=== PATIENT | male | born 1980 | race Caucasian/White ===

== ENCOUNTER 2016-07-22 22:02 | Emergency (ER) | payer OTHER ==
[~2016-07-22] VITALS: Ht 172.7 cm; Wt 86.2 kg
[~2016-07-22 22:02] MED LIST: FLEXERIL PO; SKEL800T5 PO
[2016-07-22] MEDS ORDERED: ALEV220C2 PO (22:13)
[2016-07-23] MEDS ORDERED: KETOROLAC 60 MG/2 ML VIAL (J1885) IM ONE
[2016-07-23] MEDS ORDERED: KETOROLAC 30 MG/ML VIAL (J1885) As Ordered ONE (00:26)
[2016-07-23] MEDS ORDERED: CYCL10TA PO (00:52)
[2016-07-23] MEDS ORDERED: IBUP600T26 PO (00:52)
[2016-07-23 00:58] VITALS: BP 132/69
== END 2016-07-23 01:01 | disposition home or self-care (01) ==
LOC: M ED 23:08
DX: M54.5 Low back pain (principal); G89.29 Other chronic pain; F17.210 Nicotine dependence, cigarettes, uncomplicated; Z88.8 Allergy status to other drugs, medicaments and biological substances

== ENCOUNTER → 2017-01-18 | Outpatient (REF) | payer OTHER ==
[~2017-01-18] MED LIST changes: +ALEV220C2 PO; +CYCL10TA PO; +IBUP-1022 PO
== END ==
LOC: M SFHCLERA 17:11
PROVIDERS: ATTEND Nurse Practitioner Family
DX: J02.9 Acute pharyngitis, unspecified (principal)

== ENCOUNTER → 2018-04-20 | Outpatient (REF) | payer OTHER | LOC: M SFHCLERA 09:30 | PROVIDERS: ATTEND Physician Assistant | DX: R50.9 Fever, unspecified (principal) ==

== ENCOUNTER → 2018-06-23 | Outpatient (CLI) | payer OTHER ==
--- NOTE | 2018-06-23 18:39 | REP ---
MAXILLOFACIAL CT WITHOUT CONTRAST: HISTORY: Chronic pansinusitis. Minimal mucosal thickening is present in the ethmoid, maxillary and frontal sinuses. Mucosal thickening is present in the right sphenoid sinus. There is almost complete opacification of the right sphenoid sinus. The remaining sinuses are clear. Mucosal thickening involves the osteomeatal units. The middle and inferior nasal turbinates are partially paradoxical. There is nicole bullosa of the right middle turbinate. There is mild deviation of the nasal septum to the right superiorly and to the left inferiorly. A spur is present arising from the left side of the nasal septum. The spur abuts the left middle and inferior nasal turbinates. The cribriform plate, medial rogers of the orbits and optic canals are intact. The carotid canals form a segment of the posterolateral rogers of the sphenoid sinus. Calcifications are present in the tonsils. This is secondary to previous inflammatory disease. IMPRESSION:Sinus mucosal thickening as described above. Electronically Signed by Pako Murcia MD 06/23/2018 06:43 P
== END ==
LOC: M RAD 16:44
PROVIDERS: ATTEND Otolaryngology
DX: J32.4 Chronic pansinusitis (principal)

== ENCOUNTER → 2019-08-11 | Outpatient (REF) | payer OTHER ==
[~2019-08-11] MED LIST changes: +CYCL-707 PO; -CYCL10TA PO
== END ==
LOC: M LAB REF 17:03
PROVIDERS: ATTEND Physician Assistant
DX: R21 Rash and other nonspecific skin eruption (principal)

== ENCOUNTER 2020-02-21 11:04 | Emergency (ER) | payer OTHER ==
[~2020-02-21] VITALS: Ht 172.7 cm; Wt 72.7 kg
[2020-02-21] MEDS ORDERED: LIDO1.1P TOP (11:13)
[2020-02-21] MEDS ORDERED: HYDR-3363 PO (11:13)
[2020-02-21] MEDS ORDERED: KETOROLAC 30 MG/ML 1ML VIAL IV ONE (12:15)
[2020-02-21 12:25] LABS: BASO % 0.2 % (0.0-1.0); EOS # 0.2 10^3/uL (0.0-0.5); EOS % 1.3 % (0.0-3.0); HEMATOCRIT 48.7 % (42.0-52.0); HEMOGLOBIN 15.9 g/dl (13.5-17.5); LYMPH # 3.6 10^3/uL (1.5-5.0); LYMPH % 31.9 % (24.0-44.0); MEAN CORPUSCULAR HEMOGLOBIN 30.2 pg (27.0-33.0); MEAN CORPUSCULAR HGB CONC 32.6 g/dl (32.0-36.5); MEAN CORPUSCULAR VOLUME 92.6 fl (80.0-96.0); MONO # 1.2 10^3/uL (0.0-0.8); MONO % 10.4 % (0.0-5.0); NEUTROPHILS # 6.2 10^3/uL (1.5-8.5); NEUTROPHILS % 55.8 % (36.0-66.0); PLATELET COUNT, AUTOMATED 280 10^3/uL (150-450); RED BLOOD COUNT 5.26 10^6/uL (4.30-6.10); WHITE BLOOD COUNT 11.1 10^3/uL (4.0-10.0)
[2020-02-21 12:47] LABS: ERYTHROCYTE SEDIMENTATION RATE 2 mm/hr (0-15)
--- NOTE | 2020-02-21 13:04 | REP ---
INDICATION: RUQ pain, worse after eating COMPARISON: None. TECHNIQUE: Real time bryan scale ultrasound examination using curved array transducer. FINDINGS: Liver is normal in contour, size, and echogenicity without focal hepatic lesions identified. Pancreas is incompletely evaluated due to interposed bowel gas. The gallbladder is contracted but without obvious gallstones or pericholecystic fluid. No biliary ductal dilatation is appreciated and the common bile duct measures 4.2 mm diameter. Right kidney is normal in reniform shape without hydronephrosis and measures 11.0 x 5.2 x 3.9 cm. No ascites in the visualized right upper quadrant. IMPRESSION: Essentially normal limited right upper quadrant ultrasound <Electronically signed by Tang Mccray > 02/21/20 [id number]
[2020-02-21 13:10] LABS: ALBUMIN 3.8 GM/DL (3.2-5.2); ALT/SGPT 26 U/L (12-78); BILIRUBIN,DIRECT < 0.1 MG/DL (0.0-0.2); BILIRUBIN,TOTAL 0.5 MG/DL (0.2-1.0); CK-MB VALUE MASS < 1.0 NG/ML (<3.6); CPK CREATINE PHOSPHOKINASE 57 U/L (39-308); LIPASE 219 U/L (73-393); MB/CK RELATIVE INDEX 1.75 (< OR =4); TOTAL PROTEIN 7.4 GM/DL (6.4-8.2); TROPONIN I < 0.02 NG/ML (< 0.10)
[2020-02-21] MEDS ORDERED: ISOVUE-370 76% 100ML VIAL As Ordered ONE (13:14)
--- NOTE | 2020-02-21 13:34 | REP ---
INDICATION: chronic pain, worsening ttp. COMPARISON: None. TECHNIQUE: Axial noncontrast images of the thoracic spine with coronal and sagittal reformations. FINDINGS: Thoracic vertebral bodies are intact and without acute fracture/compression injury or subluxation. Alignment and kyphosis maintained. Disc spaces are normal. Spinal canal is patent and normal. Posterior elements and spinous processes are intact. Paravertebral soft tissues are normal. IMPRESSION: Normal thoracic spine CT. No evidence for acute trauma/injury. <Electronically signed by Tang Mccray > 02/21/20 [id number]
--- NOTE | 2020-02-21 13:37 | REP ---
INDICATION: chronic pain, worsening ttp. COMPARISON: None. TECHNIQUE: Axial noncontrast images of the lumbosacral spine from mid T12 through mid sacrum with coronal and sagittal reformations. This CT examination was performed using the following dose reduction techniques: Automated exposure control, adjustment of mA and/or kv according to the patient's size, and use of iterative reconstruction technique. FINDINGS: Minimal degenerative changes include small posterior disc bulges at L5-S1 and L4-5. Alignment and lordosis maintained. Vertebral bodies are intact. Posterior elements and spinous processes are intact. There is no evidence for acute fracture/compression injury or subluxation. The spinal canal is patent. The paravertebral soft tissues are normal. IMPRESSION: No evidence for acute fracture/compression injury or subluxation. Mild posterior disc bulges at L5-S1 and L4-5. <Electronically signed by Tang Mccray > 02/21/20 [id number]
--- NOTE | 2020-02-21 13:40 | REP ---
INDICATION: upper abdominal pain. COMPARISON: None TECHNIQUE: Axial contrast-enhanced images from the lung bases to the pubic symphysis using 100 cc Isovue 370 intravenous contrast material. Coronal and sagittal reformations obtained. This CT examination was performed using the following dose reduction techniques: Automated exposure control, adjustment of mA and/or kv according to the patient's size, and the use of iterative reconstruction technique. FINDINGS: Liver, spleen, pancreas, gallbladder, bilateral adrenal glands and kidneys are essentially normal. Incidental 1.4 cm upper pole left renal hypodensity likely representing complex cyst. The enteric system demonstrates small hiatal hernia at the gastroesophageal junction. Small and large bowel is grossly unremarkable. Scattered colonic and sigmoid diverticula noted without acute diverticulitis. Pelvis demonstrates normal bladder and age-appropriate prostate/seminal vesicles. No ascites. No free air. No intraperitoneal or retroperitoneal adenopathy. Abdominal aorta and vasculature appear normal. Musculoskeletal structures are intact and without acute osseous abnormality. IMPRESSION: No acute abdominopelvic pathology appreciated. <Electronically signed by Tang Mccray > 02/21/20 [id number]
[2020-02-21] MEDS ORDERED: MORPHINE 2 MG/ML 1ML VIAL (J2270) IV ONE (14:00)
[2020-02-21] MEDS ORDERED: PANTOPRAZOLE 40MG VIAL (C9113 PER 1) IV ONE (14:00)
[2020-02-21] MEDS ORDERED: ONDANSETRON 4MG/2ML VIAL IV ONE (14:00)
[2020-02-21] MEDS ORDERED: OMEP40CA97 PO (14:50)
[2020-02-21 15:09] VITALS: BP 106/58
== END 2020-02-21 15:18 | disposition home or self-care (01) ==
LOC: M ED 11:04
DX: K44.9 Diaphragmatic hernia without obstruction or gangrene (principal); M51.26 Other intervertebral disc displacement, lumbar region; M51.27 Other intervertebral disc displacement, lumbosacral region; F17.200 Nicotine dependence, unspecified, uncomplicated; G89.29 Other chronic pain; M54.9 Dorsalgia, unspecified; Z79.899 Other long term (current) drug therapy; Z88.8 Allergy status to other drugs, medicaments and biological substances
CPT/HCPCS: 36415; 72128; 72131; 74177; 76705; 80047; 80076; 81001; 82550; 82553; 83605; 83690; 85025; 85652; 86140; 87040; 96374; 96375; 99284; C9113; J1885; J2405; Q9967

== ENCOUNTER 2020-10-16 02:25 | Inpatient (IN) | payer OTHER ==
[2020-10-16] VITALS (28 sets, daily range): BP systolic 105–151; BP diastolic 66–82
[~2020-10-16] VITALS: Ht 180.3 cm; Wt 78.0 kg
[~2020-10-16 02:25] MED LIST changes: +HYDR-3363 PO; +LIDO1.1P TOP; +OMEP40CA4 PO
[2020-10-16] MEDS ORDERED: NALOXONE 2MG/2ML SYRINGE (J2310 PER 1MG) As Ordered ONE ×2 (02:29→02:32)
[2020-10-16] MEDS ORDERED: PROPOFOL 1,000 MG/100 ML VIAL As Ordered ONE (02:44)
[2020-10-16] MEDS ORDERED: SUCCINYLCHOLINE INJ 200 MG/10 ML VIAL (J0330) IV STA (02:46)
[2020-10-16] MEDS ORDERED: ETOMIDATE INJ 20MG/10ML VIAL IV STA (02:46)
[2020-10-16] MEDS ORDERED: NALOXONE 2MG/2ML SYRINGE (J2310 PER 1MG) IV STA ×3 (02:48)
[2020-10-16] MEDS ORDERED: propofoL 1,000 MG in IV 1 EA IV SCH (02:50)
[2020-10-16 02:53] LABS: BASO # 0.1 10^3/uL (0.0-0.2); BASO % 0.2 % (0.0-1.0); EOS % 0.1 % (0.0-3.0); HEMATOCRIT 49.2 % (42.0-52.0); HEMOGLOBIN 16.6 g/dl (13.5-17.5); LYMPH # 2.9 10^3/uL (1.5-5.0); LYMPH % 11.3 % (24.0-44.0); MEAN CORPUSCULAR HEMOGLOBIN 31.9 pg (27.0-33.0); MEAN CORPUSCULAR HGB CONC 33.7 g/dl (32.0-36.5); MEAN CORPUSCULAR VOLUME 94.4 fl (80.0-96.0); MONO # 1.5 10^3/uL (0.0-0.8); MONO % 5.8 % (2.0-8.0); NEUTROPHILS # 21.2 10^3/uL (1.5-8.5); PLATELET COUNT, AUTOMATED 264 10^3/uL (150-450); RED BLOOD COUNT 5.21 10^6/uL (4.30-6.10)
[2020-10-16 02:58] LABS: WHITE BLOOD COUNT 25.8 10^3/uL (4.0-10.0)
[2020-10-16] MEDS ORDERED: ISOVUE-370 76% 100ML VIAL As Ordered ONE (03:09)
[2020-10-16 03:29] LABS: ACETAMINOPHEN LEVEL < 2.0 UG/ML (10.0-30.0); ALBUMIN 4.4 GM/DL (3.2-5.2); ALT/SGPT 28 U/L (12-78); BILIRUBIN,DIRECT < 0.1 MG/DL (0.0-0.2); BILIRUBIN,TOTAL 0.4 MG/DL (0.2-1.0); BLOOD UREA NITROGEN 19 MG/DL (7-18); CALCIUM LEVEL 8.7 MG/DL (8.5-10.1); CARBON DIOXIDE LEVEL 22 MEQ/L (21-32); CHLORIDE LEVEL 114 MEQ/L (98-107); CPK CREATINE PHOSPHOKINASE 159 U/L (39-308); CREATININE FOR GFR 1.01 MG/DL (0.70-1.30); ETHYL ALCOHOL (ETHANOL) < 0.003 % (0.000-0.010); GLOMERULAR FILTRATION RATE > 60.0 (>60); GLUCOSE, FASTING 140 MG/DL (70-100); POTASSIUM SERUM 3.7 MEQ/L (3.5-5.1); SALICYLATE LEVEL 2.1 MG/DL (5.0-30.0); SODIUM LEVEL 144 MEQ/L (136-145); TOTAL PROTEIN 7.7 GM/DL (6.4-8.2)
[2020-10-16 03:32] LABS: AMPHETAMINES LEVEL URINE NEGATIVE (NEGATIVE); BARBITURATES URINE NEGATIVE (NEGATIVE); BENZODIAZEPINES URINE NEGATIVE (NEGATIVE); CANNABINOIDS URINE POSITIVE (NEGATIVE); COCAINE METABOLITE URINE NEGATIVE (NEGATIVE); METHADONE URINE NEGATIVE (NEGATIVE); OPIATES URINE NEGATIVE (NEGATIVE); PHENCYCLIDINE URINE NEGATIVE (NEGATIVE)
[2020-10-16] MEDS ORDERED: NS 1,000 ML IV ONE (03:40)
[2020-10-16 03:46] LABS: RSV AMPLIFICATION NEGATIVE (NEGATIVE)
--- NOTE | 2020-10-16 04:05 | REPVR ---
PROCEDURE INFORMATION: Exam: XR Chest Exam date and time: 10/16/2020 3:19 AM Age: 40 years old Clinical indication: Other: Drug overdose TECHNIQUE: Imaging protocol: XR of the chest. Views: 1 view. COMPARISON: CT ABD/PEL W/IV CONTRAST ONLY 02/21/2020 1:07 PM FINDINGS: Limitations: The apices and the left costophrenic angle were not fully included. Tubes, catheters and devices: There is an endotracheal tube in appropriate position. A nasogastric tube is present with the tip in the stomach. Lungs: The lungs are clear. Pleural spaces: No pleural effusions or pneumothorax identified. Heart/Mediastinum: The heart is normal in size. Bones/joints: No acute fractures. IMPRESSION: 1. Endotracheal tube and nasogastric tube appropriately positioned. 2. No evidence of acute pleural or parenchymal disease. Electronically signed by: Naila Ricardo On 10/16/2020 04:04:42 AM
--- NOTE | 2020-10-16 04:12 | REPVR ---
PROCEDURE INFORMATION: Exam: CTA Chest With Contrast Exam date and time: 10/16/2020 3:22 AM Age: 40 years old Clinical indication: Other: Apnea/unresponsive TECHNIQUE: Imaging protocol: Computed tomographic angiography of the chest with contrast. 3D rendering (Not supervised by radiologist): MIP and/or 3D reconstructed images were created by the technologist. Radiation optimization: All CT scans at this facility use at least one of these dose optimization techniques: automated exposure control; mA and/or kV adjustment per patient size (includes targeted exams where dose is matched to clinical indication); or iterative reconstruction. Contrast material: ISOVUE 370; Contrast volume: 100 ml; Contrast route: INTRAVENOUS (IV); COMPARISON: CR PORTABLE CHEST X-RAY 10/16/2020 2:46 AM FINDINGS: Tubes, catheters and devices: There is an endotracheal tube in appropriate position. A nasogastric tube is present with the tip in the stomach. Pulmonary arteries: The pulmonary arteries are not enlarged. No filling defects are seen to indicate an acute pulmonary embolism. Aorta: No aortic aneurysm. There are no signs of acute aortic injury. Lungs: There is mild paraseptal emphysema in the upper lobes. There is a small amount of bibasilar atelectasis. Pleural spaces: No pleural effusions or pneumothorax identified. Heart: The heart is normal in size. Lymph nodes: No lymphadenopathy is seen. Bones/joints: No suspicious osseous lesions. There is asymmetric depression of the superior endplate of the T8 vertebral body with lucent fracture lines extending to the superior endplate and the left lateral aspect of the vertebral body, as well as associated mild sclerosis. There is no retropulsion or malalignment of the spine. Soft tissues: The soft tissues appear unremarkable. IMPRESSION: 1. No evidence of acute pulmonary embolism. 2. Mild paraseptal emphysema and a small amount of atelectasis in the bilateral lung bases. 3. Compression fracture involving superior endplate of the T8 vertebral body which may be acute or subacute in age. Electronically signed by: Naila Ricardo On 10/16/2020 04:12:40 AM
--- NOTE | 2020-10-16 04:20 | REPVR ---
PROCEDURE INFORMATION: Exam: CT Abdomen And Pelvis With Contrast Exam date and time: 10/16/2020 3:22 AM Age: 40 years old Clinical indication: Other: Apnea/unresponsive TECHNIQUE: Imaging protocol: Computed tomography of the abdomen and pelvis with contrast. Radiation optimization: All CT scans at this facility use at least one of these dose optimization techniques: automated exposure control; mA and/or kV adjustment per patient size (includes targeted exams where dose is matched to clinical indication); or iterative reconstruction. Contrast material: ISOVUE 370; Contrast volume: 100 ml; Contrast route: INTRAVENOUS (IV); COMPARISON: CT ABD/PEL W/IV CONTRAST ONLY 02/21/2020 1:07 PM FINDINGS: Tubes, catheters and devices: A nasogastric tube is present with the tip in the stomach. A Cummins catheter is present. Liver: The liver appears normal. Gallbladder and bile ducts: The gallbladder is normal with no stones or biliary ductal dilation. Pancreas: The pancreas is normal with no ductal dilation. Spleen: The spleen is normal. Adrenal glands: The adrenal glands are normal. Kidneys and ureters: An exophytic homogeneous, mildly hyperdense cyst is again seen at the left kidney upper pole, measuring 14 mm in diameter, without significant change. No follow-up imaging is needed. There are no ureteral stones or hydronephrosis. Stomach and bowel: The small bowel appears unremarkable. There is no dilation or thickening of the colon. Appendix: A normal appendix is identified. Intraperitoneal space: There is no evidence of free intraperitoneal or pelvic fluid. There is no free intraperitoneal air. Vasculature: No aortic aneurysm. Lymph nodes: No lymphadenopathy is seen. Urinary bladder: The bladder is decompressed. There is a small amount of intraluminal air in the bladder consistent with instrumentation. Reproductive: The prostate gland appears normal. Bones/joints: No suspicious osseous lesions. No acute fractures. Soft tissues: The soft tissues appear unremarkable. IMPRESSION: No evidence of an acute abdominal or pelvic abnormality. Electronically signed by: Naila Ricardo On 10/16/2020 04:19:21 AM
--- NOTE | 2020-10-16 04:21 | REPVR ---
PROCEDURE INFORMATION: Exam: CT Head Without Contrast Exam date and time: 10/16/2020 3:22 AM Age: 40 years old Clinical indication: Altered mental status/memory loss TECHNIQUE: Imaging protocol: Computed tomography of the head without contrast. Radiation optimization: All CT scans at this facility use at least one of these dose optimization techniques: automated exposure control; mA and/or kV adjustment per patient size (includes targeted exams where dose is matched to clinical indication); or iterative reconstruction. COMPARISON: None FINDINGS: Images through the base of the brain and posterior fossa, including the brainstem are slightly degraded by beam hardening artifacts from the adjacent calvarium. There is no evidence of acute intracranial hemorrhage, extra axial fluid collection or hematoma. There is no midline shift or herniation. The ventricles are not dilated. No evidence of pneumocephalus. There is mild intracranial atherosclerosis. No CT findings are seen at the current time to suggest changes of acute territorial vascular infarction. Note is made however, that CT changes, may lag clinical findings in acute CVA. If clinically indicated, consideration could be given to MRI with diffusion weighted imaging, due to its greater sensitivity, for early detection of acute ischemic change. No evidence of regional or global edema. Incidental intracranial calcifications are noted. No pericranial scalp hematoma is seen. No acute cranial vault fracture is seen. No fluid is seen within the visualized mastoid air cells. The visualized middle ear cavities are not opacified. There is partial opacification of visualized nasal cavities as well as the entire visualized nasopharynx this may be secondary to secretions or inflammation/infection. Clinical correlation is advised. There is mucosal thickening and some thickened appearing fluid within the right sphenoid sinus. IMPRESSION: No evidence of acute territorial major vessel infarct, mass effect, or hemorrhage. Right sphenoid sinusitis. Clinical correlation for inflammation/infection involving the nasal cavity/nasopharynx. Findings discussed above in detail. Electronically signed by: George Juárez On 10/16/2020 04:21:19 AM
[2020-10-16 04:23] LABS: LIPASE 208 U/L (73-393)
--- NOTE | 2020-10-16 04:27 | REPVR ---
PROCEDURE INFORMATION: Exam: CT Cervical Spine Without Contrast Exam date and time: 10/16/2020 3:22 AM Age: 40 years old Clinical indication: Other: AMS; Additional info: Altered mental status TECHNIQUE: Imaging protocol: Computed tomography images of the cervical spine without contrast. Radiation optimization: All CT scans at this facility use at least one of these dose optimization techniques: automated exposure control; mA and/or kV adjustment per patient size (includes targeted exams where dose is matched to clinical indication); or iterative reconstruction. COMPARISON: None FINDINGS: Cervical vertebral body heights and posterior cervical alignment are within normal limits. Prevertebral soft tissues are not well evaluated secondary to anterior catheterizations. No discrete paravertebral soft tissue hematoma is seen. The facet joints are not subluxed or dislocated. Inter spinous spacing is within normal limits. The atlantodental interval is maintained. No acute fracture of the cervical spine is seen. Degenerative changes of the cervical spine are noted, most pronounced at the C6/C7 level where there is moderate disc space loss, anterior osteophytes and posterior bony ridging. Disc displacements are not reliably assessed by this technique, however multiple posterior disc displacements are suspected, including possibly a central focal protrusion at the C5/6 level which may contact and slightly efface the anterior cord and moderate suspected disc bulge at the C6/7 level, likely contacting the anterior cord. If there are neurologic symptoms, consider further evaluation by MRI as clinically appropriate. Pleural thickening, parenchymal scarring and emphysematous changes noted at the visualized lung apices. Oral catheterizations noted extending below the level of imaging, 1 within the trachea and 1 within the esophagus , consistent with endotracheal and transesophageal catheter respectively. Tiny bubble of gas within the left internal jugular vein, likely iatrogenic. Multiple small cervical lymph nodes are seen bilaterally. These could be followed up clinically for any significance. IMPRESSION: No acute fracture or malalignment of the cervical spine. Other findings discussed above. Electronically signed by: George Juárez On 10/16/2020 04:27:14 AM
[2020-10-16 05:01] LABS: OSMOLALITY SERUM 300 MOSM/KG (275-295)
[2020-10-16 05:52] LABS: DIGOXIN LEVEL 0.1 NG/ML (0.5-2.0); MAGNESIUM LEVEL 2.3 MG/DL (1.8-2.4)
[2020-10-16] MEDS ORDERED: HOME MED LIST COMPLETE! XX SCH (06:00)
[2020-10-16] MEDS ORDERED: IBUP-1720 PO (06:00)
[2020-10-16] MEDS ORDERED: VITMTA PO (06:00)
--- NOTE | 2020-10-16 07:11 | HPEPDOC ---
[facility] Medical History & Physical Date of Admission Oct 16, 2020 Date of Service: Oct 16, 2020 Attending Physician: CONSTANCE RITTER MD History and Physical CHIEF COMPLAINT: Altered mental status HISTORY OF PRESENT ILLNESS: This is a 40-year-old male with past medical history of marijuana smoking, chronic low back pain who was brought in by ambulance for altered mental status. There was 2 part of the story given by patient's and subsequently by his sister. 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 And this afternoon he started complaining of feeling unwell and nauseated. He was making strange noises and eventually became altered. That's when his called the EMS to bring him in. The other part of the story was given by his sister. Basically, patient and his were arguing around 6 PM in the afternoon. His took the kids with her to get him situated in the came back home and did not find patient at home. Patient called his around 7 PM in the afternoon stating that he took "20 to 25 pills" of unclear specificity. He feels unwell and called his to come and pick him up. He was picked up and when he came home he became progressively altered to the point where he was found lying on the floor when EMS arrived. Upon arrival to the emergency department, patient was found to be significantly apneic. He was also profoundly bradycardic/sinus bradycardia with no evidence of prolonged QT. He received total of 6 mg of Narcan without any improvement in his clinical response. Due to persistence apnea, patient was intubated for airway protection in the emergency department. ICU was consulted for further management. Further work-up revealed patient is afebrile and normotensive. However his heart rate is in the 30s despite him being agitated on the ventilator. There is significant leukocytosis of 20,000 white count but no evidence of left shift. His kidney function is fairly preserved with no evidence of transaminitis. CK is within normal limit. Urine toxicology showed only positive for cannabinoid. Serum alcohol level, salicylate level, acetaminophen level, digoxin level were all undetectable. He has no evidence of lactic acidosis. Urinalysis with some ketones, blood and RBC. There was small amount of calcium oxalate crystal in the urine. EKG with sinus bradycardia with no evidence of prolonged QTC. CT scan of the head, chest, abdomen did not show any acute pathology. PAST MEDICAL HISTORY: Chronic low back pain and cannabinoid use PAST SURGICAL HISTORY: None SOCIAL HISTORY: Marital status: and has kids. 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 He use cannabinoid and cigarettes. But he does not have any history of alcoholic consumption. FAMILY HISTORY: Family history is noncontributory to this hospital admission. ALLERGIES: Please see below. REVIEW OF SYSTEMS: Review of system cannot be obtained as patient is currently sedated and intubated. HOME MEDICATIONS: Please see below. PHYSICAL EXAMINATION: VITAL SIGNS: Please see vital signs below. GENERAL APPEARANCE: Sedated and intubated. Appear stated age. Not in any acute distress. HEENT: No evidence of JVD or cervical adenopathy. CARDIOVASCULAR: Normal heart sounds with no extra heart sounds or murmur. Bradycardia LUNGS: Clear to auscultation bilaterally with no evidence of rhonchi, wheezing, crackles. ABDOMEN: Soft, nontender, hypoactive bowel sounds with no evidence of organomegaly. MUSCULOSKELETAL: No evidence of joint effusion or joint swelling. No evidence of muscle stiffness EXTREMITIES: No clubbing of the fingers or lower extremity pedal edema. NEUROLOGICAL: No muscle rigidity. Pupils are reactive to light. No evidence of myosis or mydriasis. PSYCHIATRIC: Unable to be assessed. Skin: No evidence of erythema or skin flushing LABORATORY DATA: See below. MICROBIOLOGY: Please see below. ASSESSMENT: This is a 40-year-old male with past medical history of marijuana smoking, chronic low back pain who was brought in by ambulance for altered mental status. #Acute respiratory failure -Secondary to inability to protect airway. Patient is currently intubated. Gas exchange is optimal with no evidence of pulmonary pathology. Ventilator setting at respiratory rate of 18, tidal volume 450, PEEP 5, FiO2 40%. #Metabolic encephalopathy -Likely secondary to suspected overdose. Will perform sedation holiday tomorrow to assess his mental status. #Overdose of unknown substance; intentional versus accidental -It is unclear what medication he took. Available toxicology work-up so far negative. There is no evidence of osmolar or anion gap. Only significant finding on physical examination is sinus bradycardia with no evidence of prolonged QTc. However, he is hemodynamic stable. Pacer pads are on his chest. There is however small evidence of calcium oxalate crystals in urinalysis/urine microscopy. I will repeat serum osmolarity and BMP as well as acetaminophen level in 6 hours. -He will need to get evaluated by psychiatry once he get extubated. -Poison control was contacted by emergency department and they recommended activated charcoal. -We will continue with maintenance IV fluids to flush-out unknown substance from his body. #Leukocytosis -Likely reactive. There is no evidence of bandemia or left shift. DVT prophylaxis: Lovenox subcutaneous GI prophylaxis: Protonix Diet: N.p.o. Critical care time excluding procedure is 70 minutes. Vital Signs Vital Signs Date Time Temp Pulse Resp B/P (MAP) Pulse Ox O2 Delivery O2 Flow Rate FiO2 10/16/20 04:55 96.6 34 18 105/69 (81) 100 Ventilator 10/16/20 03:38 50 Laboratory Data Labs 24H Laboratory Tests 2 10/16/20 02:37: Immature Granulocyte % (Auto) 0.6, Neutrophils (%) (Auto) 82.0H, Lymphocytes (%) (Auto) 11.3L, Monocytes (%) (Auto) 5.8, Eosinophils (%) (Auto) 0.1, Basophils (%) (Auto) 0.2, Neutrophils # (Auto) 21.2H, Lymphocytes # (Auto) 2.9, Monocytes # (Auto) 1.5H, Eosinophils # (Auto) 0.0, Basophils # (Auto) 0.1, Nucleated Red Blood Cells % (auto) 0.0, Urine Color YELLOW, Urine Appearance HAZY, Urine pH 5.0, Urine Specific Rufus 1.024, Urine Protein 1+H, Urine Glucose (UA) NEGATIVE, Urine Ketones 1+H, Urine Blood 1+H, Urine Nitrite NEGATIVE, Urine Bilirubin NEGATIVE, Urine Urobilinogen 0.2, Urine Leukocyte Esterase NEGATIVE, Urine WBC (Auto) 3, Urine RBC (Auto) 11H, Urine Hyaline Casts (Auto) 0, Urine Bacteria (Auto) NEGATIVE, Urine Squamous Epithelial Cells 1, Urine Calcium Oxalate Cryst (Auto) SMALL, Urine Mucus (Auto) SMALL, Urine Sperm (Auto) , Urine Osmolality 869, Anion Gap 8, Glomerular Filtration Rate > 60.0, Osmolality 300H, Lactic Acid Level 1.9, Calcium Level 8.7, Magnesium Level 2.3, Total Bilirubin 0.4, Direct Bilirubin < 0.1, Aspartate Amino Transf (AST/SGOT) 14, Alanine Aminotransferase (ALT/SGPT) 28, Alkaline Phosphatase 85, Total Creatine Kinase 159, Total Protein 7.7, Albumin 4.4, Albumin/Globulin Ratio 1.3, Lipase 208, Thyroid Stimulating Hormone (TSH) 1.520, Digoxin Level 0.1L, Salicylates Level 2.1L, Urine Opiates Screen NEGATIVE, Urine Methadone Screen NEGATIVE, Acetaminophen Level < 2.0L, Urine Barbiturates Screen NEGATIVE, Urine Phencyclidine Screen NEGATIVE, Urine Amphetamines Screen NEGATIVE, Urine Benzodiazepines Screen NEGATIVE, Urine Cocaine Metabolite Screen NEGATIVE, Urine Cannabinoids Screen POSITIVEH, Ethyl Alcohol Level < 0.003 10/16/20 02:41: Bedside Glucose (Misc Panel) 123H 10/16/20 03:04: POC Glucose (Misc Panel) 148H, POC Sodium (Misc Panel) 147H, POC Potassium (Misc Panel) 3.9, POC Chloride (Misc Panel) 114H, POC Total CO2 (Misc Panel) 19.0L, POC Blood Urea Nitrogen (Misc Panel 19, POC Ionized Calcium (Misc Panel) 4.8, POC Creatinine (Misc Panel) 0.6, POC Hematocrit (Misc Panel) 43.0, Coronavirus (COVID-19)(PCR) NEGATIVE, Influenza Type A (RT-PCR) NEGATIVE, Influenza Type B (RT-PCR) NEGATIVE, Respiratory Syncytial Virus (PCR) NEGATIVE 10/16/20 03:05: POC Total CO2 (Misc Panel) 21.0L, POC pH (Misc Panel) 7.246*L, POC Base Excess (Misc Panel) -8.0L, POC Saturated Percent O2 (Misc) 100H, POC pO2 (Misc Panel) 304.0H, POC pCO2 (Misc Panel) 44.2, POC HCO3 (Misc Panel) 19.2L 10/16/20 04:31: POC pH (Misc Panel) 7.287L, POC Base Excess (Misc Panel) -9.0L, POC Saturated Percent O2 (Misc) 99H, POC pO2 (Misc Panel) 169.0H, POC pCO2 (Misc Panel) 37.2, POC HCO3 (Misc Panel) 17.8L, POC Total CO2 (Misc Panel) 19.0L CBC/BMP Laboratory Tests 10/16/20 02:37 Microbiology Microbiology 10/16/20 Blood Culture, Received Pending 10/16/20 Blood Culture, Received Pending Home Medications Scheduled Multivitamins (Thera M Plus Tablet) 1 Each Tablet, 1 TAB PO DAILY Scheduled PRN Ibuprofen (Ibuprofen) 200 Mg Tablet, 600 MG PO Q6H PRN for BACK PAIN Allergies Coded Allergies: prednisone (Verified Allergy, Unknown, hypotension, 02/21/20) A-FIB/CHADSVASC A-FIB History Current/History of A-Fib/PAF?: No CONSTANCE RITTER MD Oct 16, 2020 07:11
[2020-10-16 07:59] LABS: OSMOLALITY SERUM 305 MOSM/KG (275-295)
[2020-10-16 08:12] LABS: BLOOD UREA NITROGEN 15 MG/DL (7-18); CALCIUM LEVEL 7.7 MG/DL (8.5-10.1); CARBON DIOXIDE LEVEL 17 MEQ/L (21-32); CHLORIDE LEVEL 123 MEQ/L (98-107); GLOMERULAR FILTRATION RATE > 60.0 (>60); GLUCOSE, FASTING 96 MG/DL (70-100); POTASSIUM SERUM 4.8 MEQ/L (3.5-5.1); SODIUM LEVEL 146 MEQ/L (136-145)
[2020-10-16] MEDS: LR 1,000 ML IV SCH ×2 (08:29→17:09)
[2020-10-16] MEDS: PANTOPRAZOLE 40MG VIAL (C9113 PER 1) IV SCH (08:29)
[2020-10-16] MEDS: ENOXAPARIN 40MG/0.4ML SYRINGE (J1650 PER 10MG) SC SCH (08:29)
[2020-10-16] MEDS: CHLORHEXIDINE GLUCONATE 0.12 % 15ML UDC (PERIDEX ORAL RINSE) MT SCH ×2 (08:29→20:51)
[2020-10-16 09:57] LABS: CK-MB VALUE MASS 2.1 NG/ML (<3.6); CPK CREATINE PHOSPHOKINASE 180 U/L (39-308); MB/CK RELATIVE INDEX 1.17 (< OR =4); PHOSPHORUS LEVEL 1.8 MG/DL (2.5-4.9); TROPONIN I < 0.02 NG/ML (< 0.10)
[2020-10-16] MEDS: propofoL 1,000 MG in IV 1 EA IV SCH ×4 (10:35→20:50)
[2020-10-16] MEDS ORDERED: MIDAZOLAM INJ 2MG/2ML VIAL (J2250 PER 1MG) As Ordered ONE (12:20)
[2020-10-16] MEDS ORDERED: MIDAZOLAM INJ 2MG/2ML VIAL (J2250 PER 1MG) IV PRN (12:20)
[2020-10-16] MEDS ORDERED: MIDAZOLAM INJ 2MG/2ML VIAL (J2250 PER 1MG) IV STA (12:20)
[2020-10-16] MEDS ORDERED: SODIUM PHOSPHATE INJ 30 MMOL in D5W 500 ML IV ONE (13:00)
[2020-10-16 14:45] LABS: BLOOD UREA NITROGEN 12 MG/DL (7-18); CALCIUM LEVEL 8.2 MG/DL (8.5-10.1); CARBON DIOXIDE LEVEL 21 MEQ/L (21-32); CHLORIDE LEVEL 116 MEQ/L (98-107); GLOMERULAR FILTRATION RATE > 60.0 (>60); GLUCOSE, FASTING 121 MG/DL (70-100); POTASSIUM SERUM 3.9 MEQ/L (3.5-5.1); SODIUM LEVEL 144 MEQ/L (136-145)
[2020-10-17] VITALS (16 sets, daily range): BP systolic 97–156; BP diastolic 53–86
[2020-10-17] MEDS: propofoL 1,000 MG in IV 1 EA IV SCH ×4 (00:31→08:15)
[2020-10-17] MEDS: MIDAZOLAM INJ 2MG/2ML VIAL (J2250 PER 1MG) IV PRN ×2 (03:22→08:00)
[2020-10-17] MEDS: LR 1,000 ML IV SCH ×2 (04:07→13:18)
[2020-10-17 06:08] LABS: HEMATOCRIT 39.3 % (42.0-52.0); HEMOGLOBIN 13.3 g/dl (13.5-17.5); MEAN CORPUSCULAR HEMOGLOBIN 31.5 pg (27.0-33.0); MEAN CORPUSCULAR HGB CONC 33.8 g/dl (32.0-36.5); MEAN CORPUSCULAR VOLUME 93.1 fl (80.0-96.0); PLATELET COUNT, AUTOMATED 214 10^3/uL (150-450); RED BLOOD COUNT 4.22 10^6/uL (4.30-6.10); WHITE BLOOD COUNT 14.6 10^3/uL (4.0-10.0)
[2020-10-17 06:32] LABS: ALT/SGPT 20 U/L (12-78); BILIRUBIN,TOTAL 0.4 MG/DL (0.2-1.0); BLOOD UREA NITROGEN 9 MG/DL (7-18); CALCIUM LEVEL 8.2 MG/DL (8.5-10.1); CARBON DIOXIDE LEVEL 26 MEQ/L (21-32); CHLORIDE LEVEL 114 MEQ/L (98-107); CREATININE FOR GFR 0.77 MG/DL (0.70-1.30); GLOMERULAR FILTRATION RATE > 60.0 (>60); GLUCOSE, FASTING 101 MG/DL (70-100); POTASSIUM SERUM 3.4 MEQ/L (3.5-5.1); SODIUM LEVEL 144 MEQ/L (136-145); TOTAL PROTEIN 5.7 GM/DL (6.4-8.2)
[2020-10-17] MEDS: ENOXAPARIN 40MG/0.4ML SYRINGE (J1650 PER 10MG) SC SCH (08:00)
[2020-10-17] MEDS: PANTOPRAZOLE 40MG VIAL (C9113 PER 1) IV SCH (08:00)
[2020-10-17] MEDS: CHLORHEXIDINE GLUCONATE 0.12 % 15ML UDC (PERIDEX ORAL RINSE) MT SCH (08:00)
[2020-10-17] MEDS: dexmedeTOMidine 200 MCG in IV 1 EA IV SCH (08:16)
[2020-10-17] MEDS ORDERED: POTASSIUM CHLORIDE 10% LIQ 20 MEQ/15 ML UDC PO ONE (10:00)
--- NOTE | 2020-10-17 12:35 | IPNPDOC ---
Subjective Date Seen The patient was seen on 10/17/20. Subjective Chief Complaint/HPI Patient was awake and alert this morning. He was following commands. Therefore he was extubated to room air. Per patient, he admits to taking 20 to 25 tablets of muscle relaxant (the name of the medication is still unclear). Therefore this was a suicidal attempt. He denies of any other complaints. Constitutional: Denies: Chills, Fever Eyes: Denies: Pain ENT: Denies: Sore Throat Skin: Denies: Rash Pulmonary: Denies: Dyspnea, Cough, Pleuritic Chest Pain Cardiovascular: Denies: Chest Pain, Palpitations, Orthopnea, Paroxysmal Noc. Dyspnea Gastrointestinal: Denies: Nausea, Vomiting, Abdominal Pain, Diarrhea Neurological: Denies: Weakness, Numbness Objective Physical Examination General Exam: Positive: Alert, Cooperative, No Acute Distress Eye Exam: Positive: PERRLA, Sclera icteric ENT Exam: Positive: Atraumatic Neck Exam: Positive: Supple; Negative: JVD Chest Exam: Positive: Clear to auscultation, Normal air movement Heart Exam: Positive: Rate Normal Abdomen Exam: Positive: Normal bowel sounds, Soft; Negative: Tenderness Extremity Exam: Negative: Clubbing, Cyanosis, Edema Neuro Exam: Positive: Normal Speech Psych Exam: Positive: Mood NL, Oriented x 3 Assessment /Plan Assessment This is a 40-year-old male with past medical history of marijuana smoking, chronic low back pain who was brought in by ambulance for altered mental status. Plan/VTE VTE Prophylaxis Ordered?: Yes Plan #Acute respiratory failure -He was initially intubated for airway protection due to persistent apnea From medication overdose. He is alert and oriented today. Therefore he was extubated to room air. #Metabolic encephalopathy -Secondary to muscle relaxant overdose. However, this has been resolved. #Overdose of muscle relaxant; intentional -It appears there is no sympathomimetic/anticholinergic or significant parasympathetic response to any of the medication he took. He is hemodynamic stable and normal muscle rigidity of rhabdomyolysis. Only presenting symptom associated with the medication he took was sinus bradycardia with no ST-T wave changes. -He is currently alert and oriented. Psychiatry has been consulted for involuntary admission for inpatient psych. #Leukocytosis -Resolved #Sinus bradycardia -Likely related to the muscle relaxant he took. However this has been resolved. We will continue with maintenance IV fluid administration for medication clearance. DVT prophylaxis: Lovenox subcutaneous GI prophylaxis: Not indicated Diet: Clear liquid diet Critical care time excluding procedure is 40 minutes. Disposition Continue ICU care. VS, I&O, 24H, Fishbone Vital Signs/I&O Vital Signs Date Time Temp Pulse Resp B/P (MAP) Pulse Ox O2 Delivery O2 Flow Rate FiO2 10/17/20 12:10 94 22 97 Nasal Cannula 2.0 10/17/20 12:00 98.4 129/76 (93) 35 I&O- Last 24 Hours up to 6 AM 10/17/20 06:00 Intake Total 2743.57 ml Output Total 1295 ml Balance 1448.57 ml Laboratory Data 24H LABS Laboratory Tests 2 10/16/20 13:57: Anion Gap 7L, Glomerular Filtration Rate > 60.0, Calcium Level 8.2L 10/17/20 05:16: Anion Gap 4L, Glomerular Filtration Rate > 60.0, Calcium Level 8.2L, Nucleated Red Blood Cells % (auto) 0.0, Total Bilirubin 0.4, Aspartate Amino Transf (AST/SGOT) 9, Alanine Aminotransferase (ALT/SGPT) 20, Alkaline Phosphatase 67, Total Protein 5.7#L, Albumin 3.0#L, Albumin/Globulin Ratio 1.1 10/17/20 09:18: Methicillin-Resist S.aureus DNA PCR NOT DETECTED CBC/BMP Laboratory Tests 10/16/20 13:57 10/17/20 05:16 Microbiology Microbiology 10/16/20 Blood Culture - Preliminary, Resulted No growth after 24 hours . All specim... 10/16/20 Blood Culture - Preliminary, Resulted No growth after 24 hours . All specim... CONSTANCE RITTER MD Oct 17, 2020 12:35
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
[2020-10-17] MEDS ORDERED: HALOPERIDOL 5MG/ML VIAL (J1630 PER 1) As Ordered ONE (15:19)
[2020-10-17] MEDS ORDERED: HALOPERIDOL 5MG/ML VIAL (J1630 PER 1) IV ONE (15:20)
[2020-10-17] MEDS ORDERED: HALOPERIDOL 5MG/ML VIAL (J1630 PER 1) IM STA (15:22)
[2020-10-17] MEDS ORDERED: diphenhydrAMINE 50MG/ML VIAL (J1200) IV ONE (15:35)
[2020-10-17] MEDS ORDERED: BENZTROPINE 1 MG TAB PO PRN (15:55)
--- NOTE | 2020-10-17 16:42 | ECGEPIP ---
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
--- NOTE | 2020-10-17 16:43 | ECGEPIP ---
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
[2020-10-17] MEDS ORDERED: LORazepam 2 MG/ML VIAL As Ordered ONE (16:46)
[2020-10-17] MEDS ORDERED: diphenhydrAMINE 50MG/ML VIAL (J1200) IV STA (16:49)
[2020-10-17] MEDS ORDERED: LORazepam 2 MG/ML VIAL IV STA (16:49)
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
[2020-10-17] MEDS ORDERED: OLANZapine INTRAMUSCULAR 10MG VIAL IM ONE (18:00)
[2020-10-17] MEDS ORDERED: LORazepam 2 MG/ML VIAL IV PRN (19:45)
[2020-10-17] MEDS ORDERED: diphenhydrAMINE 50MG/ML VIAL (J1200) IV PRN (19:45)
[2020-10-17] MEDS ORDERED: ACETAMINOPHEN *IV* 650 MG in IV 1 EA IV ONE (19:50)
[2020-10-17 20:30] LABS: BASO % 0.1 % (0.0-1.0); HEMATOCRIT 41.2 % (42.0-52.0); HEMOGLOBIN 14.3 g/dl (13.5-17.5); LYMPH # 1.6 10^3/uL (1.5-5.0); LYMPH % 9.3 % (24.0-44.0); MEAN CORPUSCULAR HEMOGLOBIN 31.7 pg (27.0-33.0); MEAN CORPUSCULAR HGB CONC 34.7 g/dl (32.0-36.5); MEAN CORPUSCULAR VOLUME 91.4 fl (80.0-96.0); MONO % 9.3 % (2.0-8.0); NEUTROPHILS # 13.4 10^3/uL (1.5-8.5); NEUTROPHILS % 80.4 % (36.0-66.0); PLATELET COUNT, AUTOMATED 224 10^3/uL (150-450); RED BLOOD COUNT 4.51 10^6/uL (4.30-6.10)
--- NOTE | 2020-10-17 20:38 | REPVR ---
PROCEDURE INFORMATION: Exam: XR Chest Exam date and time: 10/17/2020 8:08 PM Age: 40 years old Clinical indication: Fever TECHNIQUE: Imaging protocol: XR of the chest. Views: 1 view. COMPARISON: CR PORTABLE CHEST X-RAY 10/16/2020 2:46 AM FINDINGS: Lungs: Unremarkable. No consolidation. Pleural spaces: Unremarkable. No pleural effusion. No pneumothorax. Heart/Mediastinum: Unremarkable. No cardiomegaly. Bones/joints: Unremarkable. IMPRESSION: Negative chest with interval removal of ET tube and NG tube since 10/16/2020. Electronically signed by: Dave Echevarria On 10/17/2020 20:38:41 PM
[2020-10-17 20:55] LABS: ALBUMIN 3.4 GM/DL (3.2-5.2); ALT/SGPT 23 U/L (12-78); BILIRUBIN,TOTAL 0.7 MG/DL (0.2-1.0); BLOOD UREA NITROGEN 9 MG/DL (7-18); CALCIUM LEVEL 8.3 MG/DL (8.5-10.1); CARBON DIOXIDE LEVEL 25 MEQ/L (21-32); CHLORIDE LEVEL 115 MEQ/L (98-107); CREATININE FOR GFR 0.96 MG/DL (0.70-1.30); GLOMERULAR FILTRATION RATE > 60.0 (>60); GLUCOSE, FASTING 110 MG/DL (70-100); POTASSIUM SERUM 3.3 MEQ/L (3.5-5.1); SODIUM LEVEL 146 MEQ/L (136-145); TOTAL PROTEIN 6.5 GM/DL (6.4-8.2)
[2020-10-17] MEDS ORDERED: HALOPERIDOL 5MG/ML VIAL (J1630 PER 1) IM PRN ×3 (21:00)
[2020-10-17 21:16] LABS: MONO # 1.6 10^3/uL (0.0-0.8); WHITE BLOOD COUNT 16.7 10^3/uL (4.0-10.0)
[2020-10-18] VITALS: BP 140/70
[2020-10-18 04:00] VITALS: BP 153/82
[2020-10-18 05:41] LABS: HEMATOCRIT 40.8 % (42.0-52.0); HEMOGLOBIN 13.8 g/dl (13.5-17.5); MEAN CORPUSCULAR HEMOGLOBIN 30.7 pg (27.0-33.0); MEAN CORPUSCULAR HGB CONC 33.8 g/dl (32.0-36.5); MEAN CORPUSCULAR VOLUME 90.9 fl (80.0-96.0); PLATELET COUNT, AUTOMATED 203 10^3/uL (150-450); RED BLOOD COUNT 4.49 10^6/uL (4.30-6.10); WHITE BLOOD COUNT 11.5 10^3/uL (4.0-10.0)
[2020-10-18 06:30] LABS: ALBUMIN 3.2 GM/DL (3.2-5.2); ALT/SGPT 21 U/L (12-78); BLOOD UREA NITROGEN 10 MG/DL (7-18); CARBON DIOXIDE LEVEL 24 MEQ/L (21-32); CHLORIDE LEVEL 115 MEQ/L (98-107); CREATININE FOR GFR 0.86 MG/DL (0.70-1.30); GLOMERULAR FILTRATION RATE > 60.0 (>60); GLUCOSE, FASTING 101 MG/DL (70-100); MAGNESIUM LEVEL 2.1 MG/DL (1.8-2.4); PHOSPHORUS LEVEL 1.6 MG/DL (2.5-4.9); POTASSIUM SERUM 3.1 MEQ/L (3.5-5.1); SODIUM LEVEL 146 MEQ/L (136-145); TOTAL PROTEIN 6.1 GM/DL (6.4-8.2)
[2020-10-18 08:00] VITALS: BP 146/77
[2020-10-18] MEDS ORDERED: POTASSIUM CHLORIDE 10 MEQ SR TABLET PO ONE (10:30)
[2020-10-18 12:09] LABS: AMORPHOUS SEDIMENT SMALL (NEGATIVE); APPEARANCE, URINE CLOUDY (CLEAR); BACTERIA, URINE AUTO NEGATIVE (NEGATIVE); BILIRUBIN, URINE AUTO NEGATIVE (NEGATIVE); BLOOD, URINE BLOOD NEGATIVE (NEGATIVE); COLOR, URINE YELLOW (YELLOW); GLUCOSE, URINE (UA) AUTO NEGATIVE (NEGATIVE); KETONE, URINE AUTO 1+ mg/dL (NEGATIVE); LEUKOCYTE ESTERASE, URINE AUTO NEGATIVE (NEGATIVE); MUCUS, URINE SMALL (NEGATIVE); NITRITE, URINE AUTO NEGATIVE (NEGATIVE); PROTEIN, URINE AUTO NEGATIVE (NEGATIVE); RBC, URINE AUTO 7 /HPF (0-3); SPECIFIC GRAVITY URINE AUTO 1.016 (1.002-1.035); SQUAMOUS EPITHELIAL CELL UR AU 0 /HPF (0-6); WBC, URINE AUTO 2 /HPF (0-3)
[2020-10-18] MEDS ORDERED: POTASSIUM PHOSPHATE INJ 30 MMOL in D5W 500 ML IV ONE (13:00)
[2020-10-18] MEDS: ENOXAPARIN 40MG/0.4ML SYRINGE (J1650 PER 10MG) SC SCH (13:23)
[2020-10-18 15:14] VITALS: BP 153/90
[2020-10-18] MEDS: D5W/0.45% SODIUM CHLORIDE 1,000 ML IV SCH (16:09)
[2020-10-18 20:00] VITALS: BP 150/90
[2020-10-19] MEDS: D5W/0.45% SODIUM CHLORIDE 1,000 ML IV SCH ×2 (05:00→18:18)
[2020-10-19 05:02] VITALS: BP 130/81
[2020-10-19 06:39] LABS: BASO % 0.2 % (0.0-1.0); EOS # 0.3 10^3/uL (0.0-0.5); EOS % 2.7 % (0.0-3.0); HEMATOCRIT 40.7 % (42.0-52.0); HEMOGLOBIN 13.9 g/dl (13.5-17.5); LYMPH # 3.3 10^3/uL (1.5-5.0); LYMPH % 31.5 % (24.0-44.0); MEAN CORPUSCULAR HEMOGLOBIN 31.4 pg (27.0-33.0); MEAN CORPUSCULAR HGB CONC 34.2 g/dl (32.0-36.5); MEAN CORPUSCULAR VOLUME 91.9 fl (80.0-96.0); MONO # 1.2 10^3/uL (0.0-0.8); MONO % 11.7 % (2.0-8.0); NEUTROPHILS # 5.5 10^3/uL (1.5-8.5); NEUTROPHILS % 53.4 % (36.0-66.0); PLATELET COUNT, AUTOMATED 201 10^3/uL (150-450); RED BLOOD COUNT 4.43 10^6/uL (4.30-6.10); WHITE BLOOD COUNT 10.4 10^3/uL (4.0-10.0)
[2020-10-19 06:52] LABS: ALBUMIN 2.9 GM/DL (3.2-5.2); ALT/SGPT 22 U/L (12-78); BLOOD UREA NITROGEN 10 MG/DL (7-18); CALCIUM LEVEL 8.2 MG/DL (8.5-10.1); CARBON DIOXIDE LEVEL 24 MEQ/L (21-32); CHLORIDE LEVEL 113 MEQ/L (98-107); GLOMERULAR FILTRATION RATE > 60.0 (>60); GLUCOSE, FASTING 100 MG/DL (70-100); MAGNESIUM LEVEL 2.1 MG/DL (1.8-2.4); PHOSPHORUS LEVEL 1.6 MG/DL (2.5-4.9); POTASSIUM SERUM 3.4 MEQ/L (3.5-5.1); SODIUM LEVEL 141 MEQ/L (136-145); TOTAL PROTEIN 6.5 GM/DL (6.4-8.2)
[2020-10-19] MEDS: ENOXAPARIN 40MG/0.4ML SYRINGE (J1650 PER 10MG) SC SCH (09:39)
[2020-10-19] MEDS: NICOTINE POLACRILEX 2 MG GUM PO PRN ×2 (09:39→18:16)
[2020-10-19 14:00] VITALS: BP 127/80
--- NOTE | 2020-10-19 14:49 | IPNPDOC ---
Subjective Date Seen The patient was seen on 10/19/20. Subjective Chief Complaint/HPI Mr. Yung is a 40 year old male with history of marijuana use who was brought here for AMS and intubated for inability to protect airway. Patient was extubated on 10/17/20. Patient's last fever was on 10/18/20. Unlikely to be infectious. Otherwise, this morning, patient denies chest pain or dyspnea. He had no further questions or concerns. Objective Physical Examination General Exam: Positive: Alert, Cooperative ENT Exam: Positive: Atraumatic Neck Exam: Positive: Supple Chest Exam: Positive: Clear to auscultation, Normal air movement Heart Exam: Positive: Rate Normal Abdomen Exam: Positive: Normal bowel sounds, Soft; Negative: Tenderness Extremity Exam: Positive: Cyanosis; Negative: Edema Neuro Exam: Positive: Normal Speech Psych Exam: Positive: Mood NL, Oriented x 3 Assessment /Plan Assessment Mr. Yung is a 40 year old male with history of marijuana use who was brought here for AMS and intubated for inability to protect airway. Patient had overdose on muscle relaxants in a suicide attempt. Psych evaluated patient and patient to be transferred when medically stable. Transfer was delayed due to episode of fever. Unlikely to be infectious. If no fever tomorrow and blood cultures remain negative, patient would be medically stable to go to [facility]. Plan/VTE VTE Prophylaxis Ordered?: Yes Plan 1. Acute respiratory failure Patient had to be intubated on admission due to inability to protect airway Resolved. Patient extubated on 10/17/2020 2. Metabolic encephalopathy Secondary to muscle relaxants overdose Resolved 3. Fever Last fever on 10/18/2020 Unlikely to be infectious If afebrile for more than 48 hours and blood cultures remain negative, patient be medically stable to inpatient mental health unit 4. DVT prophylaxis Lovenox Disposition: Patient remains afebrile and blood culture remains negative tomorrow, patient will be medically stable for inpatient mental health unit VS, I&O, 24H, Fishbone Vital Signs/I&O Vital Signs Date Time Temp Pulse Resp B/P (MAP) Pulse Ox O2 Delivery O2 Flow Rate FiO2 10/19/20 05:02 98.6 78 18 130/81 (97) 96 Room Air 10/17/20 12:10 2.0 10/17/20 12:00 35 I&O- Last 24 Hours up to 6 AM 10/19/20 05:59 Intake Total 925 ml Output Total 700 ml Balance 225 ml Laboratory Data 24H LABS Laboratory Tests 2 10/19/20 05:53: Immature Granulocyte % (Auto) 0.5, Neutrophils (%) (Auto) 53.4, Lymphocytes (%) (Auto) 31.5, Monocytes (%) (Auto) 11.7H, Eosinophils (%) (Auto) 2.7, Basophils (%) (Auto) 0.2, Neutrophils # (Auto) 5.5, Lymphocytes # (Auto) 3.3, Monocytes # (Auto) 1.2H, Eosinophils # (Auto) 0.3, Basophils # (Auto) 0.0, Nucleated Red Blood Cells % (auto) 0.0, Anion Gap 4L, Glomerular Filtration Rate > 60.0, Calcium Level 8.2L, Phosphorus Level 1.6L, Magnesium Level 2.1, Total Bilirubin 1.0, Aspartate Amino Transf (AST/SGOT) 18, Alanine Aminotransferase (ALT/SGPT) 22, Alkaline Phosphatase 63, Total Protein 6.5, Albumin 2.9L, Albumin/Globulin Ratio 0.8 CBC/BMP Laboratory Tests 10/19/20 05:53 Microbiology Microbiology 10/17/20 Blood Culture - Preliminary, Resulted No growth after 24 hours . All specim... 10/17/20 Blood Culture - Preliminary, Resulted No growth after 24 hours . All specim... 10/16/20 Blood Culture - Preliminary, Resulted No Growth after 72 hours. All specime... 10/16/20 Blood Culture - Preliminary, Resulted No Growth after 72 hours. All specime... JANUARY OG DO Oct 19, 2020 12:46
[2020-10-19 22:00] VITALS: BP 125/80
[2020-10-20] VITALS: BP 125/80
[2020-10-20 06:00] VITALS: BP 110/66
[2020-10-20] MEDS: D5W/0.45% SODIUM CHLORIDE 1,000 ML IV SCH ×2 (07:10→08:08)
[2020-10-20] MEDS: NICOTINE POLACRILEX 2 MG GUM PO PRN ×3 (07:54→20:52)
[2020-10-20] MEDS: ENOXAPARIN 40MG/0.4ML SYRINGE (J1650 PER 10MG) SC SCH (07:54)
[2020-10-20 08:06] LABS: HEMATOCRIT 42.8 % (42.0-52.0); HEMOGLOBIN 14.5 g/dl (13.5-17.5); MEAN CORPUSCULAR HEMOGLOBIN 30.9 pg (27.0-33.0); MEAN CORPUSCULAR HGB CONC 33.9 g/dl (32.0-36.5); MEAN CORPUSCULAR VOLUME 91.1 fl (80.0-96.0); PLATELET COUNT, AUTOMATED 230 10^3/uL (150-450); WHITE BLOOD COUNT 11.5 10^3/uL (4.0-10.0)
[2020-10-20 08:32] LABS: ALBUMIN 3.2 GM/DL (3.2-5.2); ALT/SGPT 30 U/L (12-78); BILIRUBIN,TOTAL 0.8 MG/DL (0.2-1.0); BLOOD UREA NITROGEN 11 MG/DL (7-18); CARBON DIOXIDE LEVEL 24 MEQ/L (21-32); CHLORIDE LEVEL 110 MEQ/L (98-107); CREATININE FOR GFR 0.77 MG/DL (0.70-1.30); GLOMERULAR FILTRATION RATE > 60.0 (>60); GLUCOSE, FASTING 86 MG/DL (70-100); POTASSIUM SERUM 3.7 MEQ/L (3.5-5.1); SODIUM LEVEL 140 MEQ/L (136-145); TOTAL PROTEIN 6.3 GM/DL (6.4-8.2)
[2020-10-20 14:00] VITALS: BP 123/74
--- NOTE | 2020-10-20 14:16 | IPNPDOC ---
Subjective Date Seen The patient was seen on 10/20/20. Subjective Chief Complaint/HPI Mr. Yung is a 40 year old male with history of marijuana use who was brought here for AMS and intubated for inability to protect airway. Patient was extubated on 10/17/20. Patient's last fever was on 10/18/20. This morning, patient feels well. Denies any chest pain or dyspnea. Patient has been afebrile for more than 48 hours and no growth to date on blood cultures. Patient is medically stable to go to inpatient mental health unit. As of now, there is no bed availability. Objective Physical Examination General Exam: Positive: Alert, Cooperative ENT Exam: Positive: Atraumatic Neck Exam: Positive: Supple Chest Exam: Positive: Clear to auscultation, Normal air movement Heart Exam: Positive: Rate Normal Abdomen Exam: Positive: Normal bowel sounds, Soft; Negative: Tenderness Extremity Exam: Positive: Cyanosis; Negative: Edema Neuro Exam: Positive: Normal Speech Psych Exam: Positive: Mood NL, Oriented x 3 Assessment /Plan Assessment Mr. Yung is a 40 year old male with history of marijuana use who was brought here for AMS and intubated for inability to protect airway. Patient had overdose on muscle relaxants in a suicide attempt. Psych evaluated patient and patient to be transferred when medically stable. Transfer was delayed due to episode of fever. Unlikely to be infectious. Patient has not been afebrile for more than 48 hours and blood cultures are negative to date. Patient is medically stable to go to inpatient mental health unit. Pending bed availability Plan/VTE VTE Prophylaxis Ordered?: Yes Plan 1. Acute respiratory failure Patient had to be intubated on admission due to inability to protect airway Resolved. Patient extubated on 10/17/2020 2. Metabolic encephalopathy Secondary to muscle relaxants overdose Resolved 3. Fever Last fever on 10/18/2020 Unlikely to be infectious Patient has been afebrile for more than 48 hours and blood cultures are no growth to date. Patient is medically stable go to inpatient mental health unit. 4. DVT prophylaxis Lovenox Disposition: Patient is medically stable to go to inpatient mental health. Pending bed availability VS, I&O, 24H, Fishbone Vital Signs/I&O Vital Signs Date Time Temp Pulse Resp B/P (MAP) Pulse Ox O2 Delivery O2 Flow Rate FiO2 10/20/20 06:00 99.5 61 18 110/66 (81) 97 110.0 66 10/20/20 00:00 Room Air I&O- Last 24 Hours up to 6 AM 10/20/20 06:00 Intake Total 3480 ml Output Total 2475 ml Balance 1005 ml Laboratory Data 24H LABS Laboratory Tests 2 10/20/20 07:07: Nucleated Red Blood Cells % (auto) 0.0, Anion Gap 6L, Glomerular Filtration Rate > 60.0, Calcium Level 9.0, Total Bilirubin 0.8, Aspartate Amino Transf (AST/SGOT) 16, Alanine Aminotransferase (ALT/SGPT) 30, Alkaline Phosphatase 70, Total Protein 6.3L, Albumin 3.2, Albumin/Globulin Ratio 1.0 CBC/BMP Laboratory Tests 10/20/20 07:07 Microbiology Microbiology 10/17/20 Blood Culture - Preliminary, Resulted No Growth after 48 hours. All Specime... 10/17/20 Blood Culture - Preliminary, Resulted No Growth after 48 hours. All Specime... 10/16/20 Blood Culture - Preliminary, Resulted No Growth after 72 hours. All specime... 10/16/20 Blood Culture - Preliminary, Resulted No Growth after 72 hours. All specime... JANUARY OG DO Oct 20, 2020 14:15
[2020-10-20 20:52] VITALS: BP 141/76
--- NOTE | 2020-10-20 22:12 | ECGEPIP ---
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
[2020-10-21] MEDS ORDERED: PERCOCET 5MG/325MG TAB PO ONE (02:55)
--- NOTE | 2020-10-21 03:15 | IPNPDOC ---
Text Note Date of Service The patient was seen on 10/21/20. NOTE Significant event. Patient had IV removed around 2100 since expiration IV ti daljit, [facility] and no longer requiring IV medication. Overnight, patient suddenly awoke with complaints of left arm discomfort. Patient seen at bedside he is sitting up in family member at bedside. Patient describes severe sharp burning shooting sensation from bicep down to hands limiting his ability to contract his bicep and bend his arm. There is some localized swelling to the antecubital lateral inner arm and patient's AC to bicep area is exquisitely tender. Patient has equal handgrips bilaterally and brisk capillary refill. He denies any sensation changes between the 2 arms. Concern for abscess versus thrombus. Will offer patient pain medication, caution given patient had arrived with some overdose. Additionally, will obtain ultrasound left upper extremity. Pending ultrasound for further interventions. TM. VS,Fishbone, I+O VS, Fishbone, I+O Laboratory Tests 10/20/20 07:07 Vital Signs Date Time Temp Pulse Resp B/P (MAP) Pulse Ox O2 Delivery O2 Flow Rate FiO2 10/20/20 20:52 98.0 62 16 141/76 (97) 97 Room Air 10/20/20 06:00 110.0 66 I&O- Last 24 Hours up to 6 AM 10/21/20 06:00 Intake Total 1040 ml Output Total 0 ml Balance 1040 ml TOBY HESS NP Oct 21, 2020 03:15
[2020-10-21] MEDS ORDERED: PERCOCET 5MG/325MG TAB PO PRN (03:25)
--- NOTE | 2020-10-21 05:13 | REPVR ---
PROCEDURE INFORMATION: Exam: US Duplex Left Upper Extremity Veins, Limited Exam date and time: 10/21/2020 3:47 AM Age: 40 years old Clinical indication: Pain; Arm, upper; Left; Additional info: Lue swelling/ exquisite pain concern abscess v thrombus TECHNIQUE: Imaging protocol: Real-time Duplex ultrasound of the Left Upper Extremity with 2-D bryan scale, color Doppler flow and spectral waveform analysis with image documentation. Limited exam focused on the left upper extremity veins. COMPARISON: CT ANGIO CHEST 10/16/2020 3:13 AM FINDINGS: Left deep veins: Unremarkable. Axillary and brachial veins are patent throughout without thrombus. Normal Doppler waveforms. Normal compressibility and/or augmentation response. Visualized internal jugular and subclavian veins are patent. Left superficial veins: There is thickening, diffuse enlargement, and diffuse thrombosis of the left basilic vein and the left cephalic vein with no detectable flow on color or pulsed Doppler. Soft tissues: Unremarkable. Other findings: The right subclavian vein is patent with normal color flow and a normal phasic, venous waveform. IMPRESSION: 1. No evidence of deep vein thrombosis. 2. Extensive superficial thrombophlebitis of the left cephalic and left basilic veins. Electronically signed by: Naila Ricardo On 10/21/2020 05:13:36 AM
[2020-10-21] MEDS: IBUPROFEN 800 MG TAB PO SCH ×2 (05:58→13:10)
[2020-10-21 06:00] VITALS: BP 125/77
[2020-10-21] MEDS: NICOTINE POLACRILEX 2 MG GUM PO PRN ×2 (06:02→13:10)
[2020-10-21 06:14] LABS: HEMATOCRIT 42.9 % (42.0-52.0); HEMOGLOBIN 14.7 g/dl (13.5-17.5); MEAN CORPUSCULAR HEMOGLOBIN 30.9 pg (27.0-33.0); MEAN CORPUSCULAR HGB CONC 34.3 g/dl (32.0-36.5); MEAN CORPUSCULAR VOLUME 90.1 fl (80.0-96.0); PLATELET COUNT, AUTOMATED 216 10^3/uL (150-450); RED BLOOD COUNT 4.76 10^6/uL (4.30-6.10); WHITE BLOOD COUNT 12.8 10^3/uL (4.0-10.0)
[2020-10-21 06:44] LABS: ALBUMIN 3.3 GM/DL (3.2-5.2); ALT/SGPT 28 U/L (12-78); BILIRUBIN,TOTAL 0.7 MG/DL (0.2-1.0); BLOOD UREA NITROGEN 15 MG/DL (7-18); CALCIUM LEVEL 9.1 MG/DL (8.5-10.1); CARBON DIOXIDE LEVEL 25 MEQ/L (21-32); CHLORIDE LEVEL 110 MEQ/L (98-107); CREATININE FOR GFR 0.82 MG/DL (0.70-1.30); GLOMERULAR FILTRATION RATE > 60.0 (>60); GLUCOSE, FASTING 84 MG/DL (70-100); POTASSIUM SERUM 3.6 MEQ/L (3.5-5.1); SODIUM LEVEL 141 MEQ/L (136-145); TOTAL PROTEIN 6.7 GM/DL (6.4-8.2)
[2020-10-21] MEDS: ENOXAPARIN 40MG/0.4ML SYRINGE (J1650 PER 10MG) SC SCH (09:38)
--- NOTE | 2020-10-21 18:45 | DS.PDOC ---
Discharge Summary General Date of Admission Oct 16, 2020 at 06:24 Date of Discharge Oct 21, 2020 Discharge Summary PROCEDURES PERFORMED DURING STAY: Intubation on 10/16/20 and extubation on 10/17/20 ADMITTING DIAGNOSES: 1. Suicide attempt by overdose 2. Toxic encephalopathy secondary to overdose 3. Ventilator dependent respiratory failure 4. GERD DISCHARGE DIAGNOSES: 1. Suicide attempt by overdose 2. Toxic encephalopathy secondary to overdose 3. Ventilator dependent respiratory failure 4. GERD 5. Superficial thrombophlebitis of the left arm COMPLICATIONS/CHIEF COMPLAINT: Metabolic Acidosis, Overdose, Respiratory Failure. HISTORY OF PRESENT ILLNESS: Copied from admitting attendings H&P "This is a 40-year-old male with past medical history of marijuana smoking, chronic low back pain who was brought in by ambulance for altered mental status. There was 2 part of the story given by patient's and subsequently by his sister. 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 And this afternoon he started complaining of feeling unwell and nauseated. He was making strange noises and eventually became altered. That's when his called the EMS to bring him in. The other part of the story was given by his sister. Basically, patient and his were arguing around 6 PM in the afternoon. His took the kids with her to get him situated in the came back home and did not find patient at home. Patient called his around 7 PM in the afternoon stating that he took "20 to 25 pills" of unclear specificity. He feels unwell and called his to come and pick him up. He was picked up and when he came home he became progressively altered to the point where he was found lying on the floor when EMS arrived. Upon arrival to the emergency department, patient was found to be significantly apneic. He was also profoundly bradycardic/sinus bradycardia with no evidence of prolonged QT. He received total of 6 mg of Narcan without any improvement in his clinical response. Due to persistence apnea, patient was intubated for ai rway protection in the emergency department. ICU was consulted for further management. Further work-up revealed patient is afebrile and normotensive. However his heart rate is in the 30s despite him being agitated on the ventilator. There is significant leukocytosis of 20,000 white count but no evidence of left shift. His kidney function is fairly preserved with no evidence of transaminitis. CK is within normal limit. Urine toxicology showed only positive for cannabinoid. Serum alcohol level, salicylate level, acetaminophen level, digoxin level were all undetectable. He has no evidence of lactic acidosis. Urinalysis with some ketones, blood and RBC. There was small amount of calcium oxalate crystal in the urine. EKG with sinus bradycardia with no evidence of prolonged QTC. CT scan of the head, chest, abdomen did not show any acute pathology. " HOSPITAL COURSE: Patient was intubated to protect airway. Patient was able to be extubated the following day. Psychiatry evaluated patient for suicide attempt. Is suspected that patient did overdose on muscle relaxants. Patient was going to be transferred but he developed a fever on 10/17/2020. Unlikely to be infectious. Blood cultures were obtained and patient was monitored. Patient was afebrile for at least 48 hours prior to discharge. Blood cultures were no growth to date prior to discharge. Otherwise, on 10/21/2020, patient has been complaining of left arm pain. Ultrasound was negative for DVT but was positive for left frazier perficial thrombophlebitis. Pain improved with warm compress. Today patient felt well. Denied any chest pain, shortness of breath, or abdominal pain. Patient is medically stable to be discharged to inpatient mental health unit. DISCHARGE MEDICATIONS: Please see below. ALLERGIES: Please see below. PHYSICAL EXAMINATION ON DISCHARGE: VITAL SIGNS: Please see below. GENERAL: Comfortable, in no apparent distress. HEENT: EOMI, sclera clear. NECK: Supple. RESPIRATORY: Lungs clear to auscultation bilaterally, no rales, wheeze or rhonchi. CARDIOVASCULAR: Regular rate and rhythm. ABDOMEN: Soft, nontender, no guarding or rebound tenderness. Normal bowel sounds. PSYCHOLOGICAL: Normal mood and affect LABORATORY DATA: Please see below. IMAGING: Radiologist interpretation CT angio chest 1. No evidence of acute pulmonary embolism. 2. Mild paraseptal emphysema and a small amount of atelectasis in the bilateral lung bases. 3. Compression fracture involving superior endplate of the T8 vertebral body which may be acute or subacute in age. CT abdomen pelvis with IV contrast only No evidence of an acute abdominal or pelvic abnormality. Ultrasound left upper extremity 1. No evidence of deep vein thrombosis. 2. Extensive superficial thrombophlebitis of the left cephalic and left basilic veins. PROGNOSIS: Good ACTIVITY: As tolerated. DIET: As tolerated DISCHARGE PLAN: Discharge to inpatient mental health unit DISPOSITION: [address] [facility]. DISCHARGE INSTRUCTIONS: 1. Follow-up with psychiatrist at inpatient mental health unit. 2. Follow-up with hospitalist at inpatient mental health unit. DISCHARGE CONDITION: Stable. Total time spent discharge planning, discharge summary, medication reconciliation: 45 minutes Vital Signs/I&Os Vital Signs Date Time Temp Pulse Resp B/P (MAP) Pulse Ox O2 Delivery O2 Flow Rate FiO2 10/21/20 06:00 99.0 51 18 125/77 (93) 96 Room Air 10/20/20 06:00 110.0 66 I&O- Last 24 Hours up to 6 AM 10/21/20 06:00 Intake Total 1160 ml Output Total 0 ml Balance 1160 ml Laboratory Data Labs 24H Laboratory Tests 2 10/21/20 05:56: Nucleated Red Blood Cells % (auto) 0.0, Anion Gap 6L, Glomerular Filtration Rate > 60.0, Calcium Level 9.1, Total Bilirubin 0.7, Aspartate Amino Transf (AST/SGOT) 13, Alanine Aminotransferase (ALT/SGPT) 28, Alkaline Phosphatase 72, Total Protein 6.7, Albumin 3.3, Albumin/Globulin Ratio 1.0 CBC/BMP Laboratory Tests 10/21/20 05:56 Microbiology Microbiology 10/21/20 Blood Culture, Received Pending 10/17/20 Blood Culture - Preliminary, Resulted No Growth after 72 hours. All specime... 10/17/20 Blood Culture - Preliminary, Resulted No Growth after 72 hours. All specime... 10/16/20 Blood Culture - Final, Complete NO GROWTH AFTER 5 DAYS 10/16/20 Blood Culture - Final, Complete NO GROWTH AFTER 5 DAYS Discharge Medications Scheduled Multivitamins (Thera M Plus Tablet) 1 Each Tablet, 1 TAB PO DAILY, (Reported) Scheduled PRN Ibuprofen (Ibuprofen) 200 Mg Tablet, 600 MG PO Q6H PRN for BACK PAIN, (Reported) Allergies Coded Allergies: prednisone (Verified Allergy, Unknown, hypotension, 02/21/20) JANUARY OG DO Oct 21, 2020 18:44
== END 2020-10-21 16:00 | DRG 812 ==
LOC: M ED 02:25 → EEVIPCON 06:24 → M PCU 06:24 → M ED INP 06:25 → ENRESERV 06:40 → M PCU 08:19 → M MSPAV 10-18 14:51
PROVIDERS: ADMIT Internal Medicine Critical Care Medicine; ATTEND Internal Medicine
PROC: 5A1945Z Respiratory Ventilation, 24-96 Consecutive Hours (ICD-10-PCS; principal; 2020-10-16)
DX: T48.1X2A Poisoning by skeletal muscle relaxants [neuromuscular blocking agents], intentional self-harm, initial encounter (principal); J96.00 Acute respiratory failure, unspecified whether with hypoxia or hypercapnia; G92 Toxic encephalopathy; T82.868A Thrombosis due to vascular prosthetic devices, implants and grafts, initial encounter; F23 Brief psychotic disorder; R00.1 Bradycardia, unspecified; K21.9 Gastro-esophageal reflux disease without esophagitis; F12.90 Cannabis use, unspecified, uncomplicated; Z88.8 Allergy status to other drugs, medicaments and biological substances

== ENCOUNTER 2020-10-21 14:51 | Inpatient (IN) | payer MEDICAID, OTHER ==
[~2020-10-21] VITALS: Ht 167.6 cm; Wt 74.8 kg
[~2020-10-21 14:51] MED LIST changes: +IBUP-1720 PO; +VITMTA PO
[2020-10-21] MEDS ORDERED: traZODone 50 MG TAB PO PRN (14:55)
[2020-10-21] MEDS ORDERED: MAALOX 30 ML SUSP *UDC PO PRN (14:55)
[2020-10-21] MEDS ORDERED: MOM 30ML SUSPENSION UDC PO PRN (14:55)
[2020-10-21 16:21] VITALS: BP 150/95
[2020-10-21] MEDS ORDERED: HOME MED LIST COMPLETE! XX SCH (17:10)
[2020-10-21] MEDS: IBUPROFEN 600MG TAB PO PRN (20:20)
[2020-10-21] MEDS ORDERED: NICOTINE 21MG/24HR 1 EA TRANSDERMAL TD ONE (20:20)
[2020-10-21] MEDS ORDERED: IBUPROFEN 600MG TAB PO PRN (20:20)
[2020-10-22] MEDS: IBUPROFEN 600MG TAB PO PRN ×2 (03:01→19:52)
[2020-10-22 06:28] VITALS: BP 131/68
[2020-10-22] MEDS ORDERED: NICOTINE 21MG/24HR 1 EA TRANSDERMAL TD SCH (09:00)
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
--- NOTE | 2020-10-22 18:31 | HPEPDOC ---
[facility] Medical History & Physical Date of Admission Oct 21, 2020 Date of Service: Oct 22, 2020 History and Physical CHIEF COMPLAINT: Medical health screening HISTORY OF PRESENT ILLNESS: Mr. Yung is a 40-year-old male who was in the inpatient mental health unit after attempting suicide by overdose. Initially came to our hospital on 10/16/2020 with toxic encephalopathy secondary to overdose and ventilator dependent respiratory failure. He was intubated on 10/16/2020 and extubated on 10/17/2020. Patient had a fever post extubation, but unlikely related to infection. Patient was monitored without antibiotics and fevers resolved. Blood cultures were negative to date. Patient did develop a superficial thrombophlebitis from IV. Patient was medically stable to go to inpatient mental health unit on 10/21/2020. When I saw patient, he is feeling better. His left arm pain had improved. Warm compresses to help. Unfortunately the wet towel warm compress loses he quickly becomes cold. He requested the compresses that you break for heat. Otherwise, denies any fever or chills, shortness of breath, chest pain, abdominal pain, diarrhea, or dysuria. Reports having some depression. He also reports having some chronic back pain which is controlled with ibuprofen. In addition, his glasses had broken when he was transported to the hospital. His vision is blurry and causes a headache sometimes. He also takes ibuprofen for the headache. Otherwise, he tells me that his current nicotine patch is too strong. PAST MEDICAL HISTORY: 1. Suicide attempt by overdose 2. Chronic low back pain 3. GERD 4. Superficial thrombophlebitis of the left arm secondary to IV PAST SURGICAL HISTORY: 1. Mole removal of the upper back (noncancerous) 2. Intubation on 10/16/2020 with extubation on 10/17/2020 SOCIAL HISTORY: Tobacco use: Current smoker ETOH: Denies Illicit drug use: Marijuana FAMILY HISTORY: Father: Denies any known past medical history in father Mother: Patient tells me that his mother recently with lung cancer ALLERGIES: Please see below. REVIEW OF SYSTEMS: CONSTITUTIONAL: Denies any fever or chills. ENT: Denies sore throat. RESPIRATORY: Denies shortness of breath. Reports having a chronic cough. CARDIOVASCULAR: Denies chest pain. GASTROINTESTINAL: Denies abdominal pain. GENITOURINARY: Denies dysuria. CUTANEOUS: Denies rashes. MUSCULOSKELETAL: Denies muscle weakness. NEUROLOGICAL: Denies neuropathy. PSYCHOLOGICAL: Reports depression. HOME MEDICATIONS: Please see below. PHYSICAL EXAMINATION: VITAL SIGNS: Temperature 97.8, pulse 61, respiratory rate 20, blood pressure 131/68, pulse oximetry 96% on room air. GENERAL: Comfortable, in no apparent distress. HEENT: EOMI, sclera clear. NECK: Supple. RESPIRATORY: Lungs clear to auscultation bilaterally, no rales, wheeze or rhonchi. CARDIOVASCULAR: Regular rate and rhythm. ABDOMEN: Soft, nontender, no guarding or rebound tenderness. Normal bowel sounds. MUSCLE SKELETAL: No pitting edema bilaterally NEUROLOGICAL: CN 3-12 grossly intact, no focal deficits noted. PSYCHOLOGICAL: Normal mood and affect LABORATORY DATA: See below. IMAGING: None MICROBIOLOGY: Please see below. ASSESSMENT and PLAN: 1. Suicide attempt by overdose Being managed in the inpatient mental health unit 2. Superficial thrombophlebitis Supportive care Okay to use breakable warm compress Okay to use ibuprofen for pain as needed 3. Nicotine use disorder Current nicotine patch (21 mg/h) was too strong Replace with 40 mg/h patch Thank you for consulting us. We will sign off at this time. If there is any further questions or concerns, please do not hesitate to reconsult us. Vital Signs Vital Signs Date Time Temp Pulse Resp B/P (MAP) Pulse Ox O2 Delivery O2 Flow Rate FiO2 10/22/20 09:30 Room Air 10/22/20 06:28 97.8 61 20 131/68 (89) 96 Home Medications Scheduled Multivitamins (Thera M Plus Tablet) 1 Each Tablet, 1 TAB PO DAILY Scheduled PRN Ibuprofen (Ibuprofen) 200 Mg Tablet, 600 MG PO Q6H PRN for BACK PAIN Allergies Coded Allergies: prednisone (Verified Allergy, Unknown, hypotension, 02/21/20) A-FIB/CHADSVASC A-FIB History Current/History of A-Fib/PAF?: No Age/Risk Factor Scoring CHADSVASC: CHADSVASC Response (Comments) Value Age Risk Factor Age < 65 years old 0 Hx of CHF No 0 Hx of HTN No 0 Hx of Stroke/TIA/or VTE No 0 Hx of Diabetes No 0 Hx of Vascular Disease No 0 Total 0 JANUARY OG DO Oct 22, 2020 18:31
[2020-10-22 18:36] VITALS: BP 137/90
[2020-10-23 07:00] VITALS: BP 117/75
[2020-10-23] MEDS: NICOTINE 14 MG/24 HR TRANSDERMAL TD SCH (08:25)
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
[2020-10-23] MEDS: IBUPROFEN 600MG TAB PO PRN (17:43)
[2020-10-23 17:56] VITALS: BP 110/80
[2020-10-24 06:14] VITALS: BP 134/75
[2020-10-24] MEDS: NICOTINE 14 MG/24 HR TRANSDERMAL TD SCH (08:27)
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
== END 2020-10-24 12:35 | disposition home or self-care (01) | DRG 754 ==
LOC: M PSY 16:02 → UNDOADMIN 16:02 → M PSY 16:03
PROVIDERS: ADMIT Psychiatry & Neurology Child & Adolescent Psychiatry; ATTEND Psychiatry & Neurology Child & Adolescent Psychiatry
DX: F43.21 Adjustment disorder with depressed mood (principal); F17.200 Nicotine dependence, unspecified, uncomplicated; F12.90 Cannabis use, unspecified, uncomplicated; Z88.8 Allergy status to other drugs, medicaments and biological substances; K21.9 Gastro-esophageal reflux disease without esophagitis; M54.5 Low back pain